=== PATIENT | male | born 1960 | race Caucasian/White ===

== ENCOUNTER 2019-03-30 08:30 | Outpatient (RCR) | payer BC, SELFPAY ==
--- NOTE | 2019-02-16 11:58 | HP.OTEVAL_ITS ---
Patient's Visit Information GUSTAVO CAMARILLO is a 59 year old M, referred to Occupational Therapy by Olu Iqbal MD, with a diagnosis of right CMC OA. Date of Evaluation: 02/16/19 Occupational Therapist: Ashli Elizabeth, OTR/L, CHT - Subjective Subjective: This 59 year old male was seen for initial OT eval. Pt states his right thumb became painful for several years. pt states he did start to wear a brace at night but has worn that out. pt had sx on 01/14/19 of a right CMC with LRTI. pt is hopeful to return to work soon. - ADLs Yard: Mow lawn, [place], [place], Use shovel, Use pruners Comments: use of chain saw - ROM Wrist: right 55/35 left 75/60 CMC: right 10 left 10 MP: right 20 pt demo hyper mobility in ext at this joint left 60 IP: right 50 left 65 ROM Comments: pt demo with bilateral thumb instability - Strength Jewel Hole Finish Opener: right NT left 115# Lateral Pinch: right NT left 10# Tripod Pinch: right NT left 12# Strength Comments: pts right hand will be tested at later date. - Sensation Sensation Comments: denies - Goals Goal:100% adherence to protocol: Yes Comment: CMC with LRTI protocol Goal:ROM equal to unaffected hand: Yes Goal:Jewel Hole Finish Opener/Pinch strength at least 75% of unaffected hand: Yes Goal:Full use of affected hand in daily activities including: Yes Goal:Decrease scar hypersensitivity: Yes - Rehabilitation General Assessment: Pt demo with limited right wrist ROM and thumb instability around MCPJ, and is currently recovering from a right CMC with LRTI reconstruction. This procedure has limited pts ind. with ADLS, IADLs and work tasks. PT would benefit from skilled OTR/L, CHT services 1-2x week for 6 weeks to ensure pt returns to PLOF. Today therapist ed. pt on sx procedure and protocol. pt ed on ROM of wrist and IP of thumb. Therapist neli. custom orthosis to provide protection and support of right thumb, and ed. pt on precuations and use of orthosis. pt demo understanding and agree to POC. Rehabilitation Potential: Good - Anticipated Interventions Anticipated Interventions: A/AAROM/PROM, Scar Care, Triggerpoint Release, Modalities, Orthoses, Joint Protection/Energy Conservation, Fine Motor Coord/[place] - Visit Plan Frequency: 1-2x /Week Duration: 6 Weeks TEXT: Thank you for the opportunity to evaluate your patient. For Medicare and Medicare HMO plans, please review the plan of care and approve it. It will need to be FAXED BACK to us at [phone] for Medicare purposes. Please let me know if there are questions or concerns regarding this plan of care. Physician Signature: _Date:
--- NOTE | 2019-05-20 16:07 | HP.OT.NRP ---
HP - Discharge Summary - Patient Information GUSTAVO CAMARILLO was seen in my office for initial evaluation on 02/16/19. The following Plan of Care was established for this patient: Initial Frequency: 1-2x /Week Initial Duration: 6 Weeks Plan: Patient encouraged to do PRE and stretching - Anticipated Interventions Anticipated Interventions: A/AAROM/PROM, Scar Care, Triggerpoint Release, Modalities, Orthoses, Joint Protection/Energy Conservation, Fine Motor Coord/[place] This patient was last seen in our office 03/30/19. Pertinent comments regarding their Occupational therapy will appear below: PT was seen for 6 OT session and was last seen 03/30/19. PT was progressing well and was hopeful he was returning to work soon. Pts last scheduled apt was a no show and at this time has not scheduled any further apts. pt d/c due to time lapse in therapy services. At this point I will be discontinuing this patient from occupational therapy. I would be happy to see this patient again in the future if found appropriate by the physician. Thank you! Ashli Elizabeth, OTR/L, CHT
== END 2019-03-30 19:00 | disposition home or self-care (01) ==
LOC: OT 08:30
PROVIDERS: Family Provider Family Medicine; PCP Family Medicine; Referring Provider Orthopaedic Surgery; Visit Provider Orthopaedic Surgery
DX: M81.0 Age-related osteoporosis without current pathological fracture (principal)
CPT/HCPCS: 97035; 97110; 97166; 97530; 97760

== ENCOUNTER 2020-12-30 06:37 | Outpatient (RCR) | payer BC, SELFPAY ==
[2020-12-30] MEDS: COVID-19 VACC, MRNA(PFIZER)/PF 30 MCG/0.3 ML SYRINGE IM (14:30)
[2021-01-20] MEDS: COVID-19 VACC, MRNA(PFIZER)/PF 30 MCG/0.3 ML SYRINGE IM (14:22)
== END 2021-03-28 23:59 ==
LOC: IMMUN 06:37
PROVIDERS: PCP Family Medicine; Referring Provider Family Medicine; Visit Provider Family Medicine
DX: Z23 Encounter for immunization (principal)
CPT/HCPCS: 0001A; 0002A; 91300

== ENCOUNTER 2021-09-10 01:18 | Emergency (ER) | payer BC, SELFPAY ==
[2021-09-10 01:22] VITALS: BP 170/81; PULSE 61; RESP 18; TEMP 37.1; O2SAT 98; BMI 28.8
--- NOTE | 2021-09-10 01:54 | EDS_ITS ---
HPI History of Present Illness Chief Complaint: Dental Detail of Chief Complaint: Left lower jaw pain with mild facial swelling. Informant: patient Onset/Context/Timing Onset: Days Context: Gradual Onset Timing: Continuous Current Severity: Mild Maximum Severity: Mild Associated Symptoms Assocated Symptom - Dental: jaw swelling and face swelling; Negative for fever, cold sensitivity or hot sensitivity Narrative Narrative: 61 male who states he has had left facial swelling since Saturday morning. No fever or chills. Increasing pain tonight. Says he has a bad left upper last molar H can have that pulled a year ago but never decided what he wanted done with it. He is on no blood thinners. He denies any fever. Denies any trauma. Prior similar symptoms: Yes Recent Illness/Hospitalization: No PFSH PFSH Medical History Hypertension Hypothyroidism Home Medications levothyroxine 25 mcg PO DAILY 09/10/21 [History Last Taken Unknown] metoprolol succinate 25 mg PO DAILY 09/10/21 [History Last Taken Unknown] penicillin V potassium 500 mg PO 4X/DAY #40 tab 09/10/21 [Rx Last Taken Unknown] Allergy/AdvReac Type Severity Reaction Status Date / Time No Known Allergies Allergy Verified 09/10/21 01:19 Social History Smoking Status: Current every day smoker tobacco type: cigarettes ROS ROS ED ROS Narrative Denies recent illness. Review of Systems ROS Unobtainable: Denies due to encephalopathy Constitutional Constitutional ED: Denies fever(s) Eyes Eyes: Denies change in vision ENT ENT ED: Denies ear pain Cardiovascular Cardiovascular: Denies chest pain Respiratory/Chest Respiratory/Chest: Denies cough or dyspnea Gastrointestinal Gastrointestinal: Denies abdominal pain, nausea or vomiting Genitourinary Genitourinary ED: Denies dysuria Musculoskeletal Musculoskeletal: Denies myalgias Integumentary Denies rash Neurologic Neurologic: Denies headache(s) Psychiatric Psychiatric: Denies depression Endocrine Endocrinology: Denies polyuria Hematologic/Lymphatic Hematologic/Lymphatic: Denies easy bruising Allergic/Immunologic Allergic/Immunologic ED: Denies urticaria EXAM Physical Exam Narrative Exam Narrative: History of male no acute distress vital signs stable afebrile. HEENT exam left upper molar is fractured. That is old. Is not specifically tender. There is no abscess. No trismus. He can open and close his mouth and any difficulty. Floor of his mouth is soft nonswollen. Posterior pharynx normal. No trouble swallowing or breathing. Mild left jaw swelling. Neck nontender no lymphadenopathy. Lungs are clear. Heart regular rhythm no murmur. Abdomen soft nontender. Otherwise exam unremarkable. Const Vital Signs: 09/10/21 01:22 Temperature 98.8 F Temperature Source Oral Pulse Rate 61 Respiratory Rate 18 Blood Pressure 170/81 H Blood Pressure Mean 110 Pulse Ox 98 Oxygen Delivery Method Room Air Positive well nourished and well developed; Negative for obese, cachectic, contractures or unkempt General Appearance ED: well developed and NAD; Negative for unkempt, cachectic, contractures or pallor Nutritional Appearance: Negative for cachectic or obese HEENT HEENT Narrative: Patient mild swelling left lower jaw. No abscess. No trismus. Floor of his mouth the posterior pharynx normal. Left upper last molar has been fractured he states that is been there for quite some time. tenderness; Negative for trauma Mouth ED: Yes lips normal, Yes tongue normal and Yes salivary gland normal Mouth: lips normal, tongue normal and salivary gland normal Throat: posterior oropharynx normal Eyes PERRL and EOMs intact bilaterally Neck no lymphadenopathy, supple and no JVD General: normal visual inspection; Negative for anterior neck swelling or tenderness Lymph Lymphatic: no lymphadenopathy noted; Negative for lymphadenopathy Chest Wall inspection of chest normal and palpation of chest normal Resp normal respiratory effort, no retractions and clear to auscultation bilaterally Cardio regular rate, regular rhythm, S1 normal heart sound, S2 normal heart sound and no murmurs GI normal to inspection, nondistended, normoactive bowel sounds, non-tender, non- distended and no masses Palpation: soft Back/Spine no CVA tenderness General Back: Negative for CVA tenderness Thoracic Spine / Upper Back: Negative for thoracic spinal tenderness Extremity normal to inspection and no joint enlargement General Extremety ED: Negative for edema General Extremity: Negative for edema Neuro moves all extremities and no focal motor deficits Sensorium / Orientation: alert, oriented to person, oriented to place and oriented to time; Negative for orientation impaired Psych mental status grossly normal Appearance: Negative for unkempt Mood & Affect: Negative for depressed Skin no rashes or lesions noted and no wounds General Skin Exam: Negative for pallor MDM MDM MDM Narrative Medical decision making narrative: Patient with dental infection. He will be placed on Pen-Vee K 500 4 times daily for 10 days. He already has a call to his dentist and will see them this week. He knows return if worse. He will be given 2 [facility] at night for pain to take at home. Otherwise Tylenol and Motrin. Discharge Plan Triage Chief Complaint: Dental ED Provider: Torsten Osman Dx/Rx/DC Orders Clinical Impression: Dental infection Instructions: ED Dental Abscess Prescriptions: New penicillin V potassium 500 mg tablet 500 mg PO 4X/DAY Qty: 40 RF: 0 No Action levothyroxine 25 mcg tablet 25 mcg PO DAILY RF: 0 metoprolol succinate 25 mg tablet extended release 24 hr 25 mg PO DAILY RF: 0 Primary Care Provider: Joes Landin Referrals: Jose Landin MD [Primary Care Provider] - Activity Restrictions/Additional Instructions: Follow-up with your dentist as soon as possible. Use the [facility] at home for pain. Do not drive if taking them. Otherwise Tylenol Motrin for pain. Penicillin VK 1 pill 4 times a day till gone. Return if a lot worse. Disposition Disposition: Home, Self Care
[2021-09-10] MEDS: Penicillin Vk 250 MG Tablet 500 MG PO (02:04)
[2021-09-10] MEDS: HYDROcodone Bitartrate/Apap 5/325 Tablet PO (02:04)
== END 2021-09-10 02:06 | disposition home or self-care (01) ==
PROVIDERS: Emergency Provider Emergency Medicine; PCP Family Medicine
DX: K04.7 Periapical abscess without sinus (principal); I10 Essential (primary) hypertension; E03.9 Hypothyroidism, unspecified; Z79.899 Other long term (current) drug therapy; F17.210 Nicotine dependence, cigarettes, uncomplicated
CPT/HCPCS: 99283; A4216

== ENCOUNTER → 2024-08-06 | Outpatient (CLI) | payer MEDICARE, SELFPAY ==
[2024-08-06 13:09] LABS: Bacteria 0 SEEN /hpf (None Seen); Mucous, Urine 0 SEEN /hpf (<or=2+); Red Blood Cells-Urine 0 SEEN /hpf (0-5); Squamous Epithelial Cells - UA 0 SEEN /hpf (0-5); White Blood Cells 0 SEEN /hpf (0-5)
[2024-08-06 15:09] LABS: Color, Urine Yellow (Yellow); Glucose, Dipstick Normal (Normal); Ketone-Dipstick Negative (Negative); Leukocyte Esterase-Dipstick Negative /ul (Negative); Nitrite-Dipstick Negative (Negative); Occult Blood-Urine Negative /ul (Negative); Protein-Dipstick Negative (Negative); Urine Bilirubin Dipstick Negative (Negative); Urine Clarity Clear (Clear); Urine Urobilinogen Normal (Normal)
[2024-08-06 15:12] LABS: Absolute Neutrophil Count 6.1 X10^3/uL (2.0-7.7); Basophil% 1.1 % (0-1); Eosinophil# 0.25 X10^3/uL; Eosinophils% 2.8 % (0-5); Hematocrit 45.9 % (40-54); Hemoglobin 15.1 g/dL (13.0-16.5); Lymphocyte % 18.1 % (19-41); Mean Corp Hgb Conc 32.9 g/dL (32-36); Mean Corpuscular Hgb 28.9 pg (27.0-32.0); Mean Corpuscular Volume 87.9 fL (80-94); Mean Platelet Vol. 10.1 fl (6.2-12.0); Monocyte# 0.78 X10^3/uL; Monocyte% 8.8 % (0-10); NRBC Flagged by Analyzer 0 % (0-5); Neutrophil # 6.06 X10^3/uL (2.7-7.7); Neutrophil % 68.6 % (47-70); Platelet Count 268 K/mm3 (150-450); RBC Distribution Width CV 13.2 % (11.6-14.6); RBC Distribution Width SD 42.5 fl (35.1-43.9); Red Blood Count 5.22 M/mm3 (4.6-6.2); White Blood Count 8.8 K/mm3 (4.4-11.0)
[2024-08-06 15:41] LABS: ALB/GLOB Ratio 1.2 RATIO (0.9-2.4); AST(SGOT) 10 U/L (15-37); Alanine Aminotransfer ALT/SGPT 21 U/L (16-61); Albumin, Serum 3.8 g/dL (3.2-5.0); Alkaline Phosphatase 80 U/L (45-117); Anion Gap 3 (5-15); BUN 11 mg/dL (7-18); BUN/Creat Ratio 12.2 RATIO (10-20); Calcium,Total 9.7 mg/dL (8.5-10.1); Chloride 103 mmol/L (98-107); Cholesterol 181 mg/dL (200); EST Glomerular Filtration Rate 89 mL/min (>60); Est Glom Filt Rate - Afr Amer 108 mL/min (>60); Free T3 2.5 pg/mL (2.18-3.98); Globulin 3.3 g/dL (2.2-4.2); Glucose 108 mg/dL (74-106); High Density Lipoprotein 45 mg/dL; PSA,Total - Annual Screen 2.87 ng/mL (0.00-4.00); Potassium 4.7 mmol/L (3.5-5.1); Protein, Total 7.1 g/dL (6.4-8.2); Sodium Level 138 mmol/L (136-145); T4 Free Direct 0.96 ng/dL (0.76-1.46); Triglycerides 140 mg/dL; Very Low Density Lipoprotein 28 mg/dL (5-40)
[2024-08-07 11:13] LABS: Vitamin D,25 Hydroxy 26.6 ng/mL
== END | disposition home or self-care (01) ==
LOC: BIMLAB 13:08
PROVIDERS: PCP Internal Medicine; Referring Provider Internal Medicine; Visit Provider Internal Medicine
DX: E78.5 Hyperlipidemia, unspecified (principal); E03.9 Hypothyroidism, unspecified; I10 Essential (primary) hypertension; Z12.5 Encounter for screening for malignant neoplasm of prostate; Z13.220 Encounter for screening for lipoid disorders; E55.9 Vitamin D deficiency, unspecified
CPT/HCPCS: 36415; 80053; 80061; 81001; 82306; 84153; 84439; 84443; 84481; 85025; G0103

== ENCOUNTER → 2024-12-14 | Outpatient (CLI) | payer MEDICARE, SELFPAY ==
[2024-12-14 13:30] LABS: Free T3 2.5 pg/mL (2.18-3.98); T4 Free Direct 1.05 ng/dL (0.76-1.46)
== END | disposition home or self-care (01) ==
LOC: BIMLAB 11:24
PROVIDERS: PCP Internal Medicine; Referring Provider Internal Medicine; Visit Provider Internal Medicine
DX: E03.9 Hypothyroidism, unspecified (principal)
CPT/HCPCS: 36415; 84439; 84443; 84481